=== PATIENT | male | born 1995 | race Two or more races ===

== ENCOUNTER 2024-08-31 13:07 | Emergency (ER) | payer MEDICAID, SELFPAY ==
[2024-08-31 13:42] VITALS: BP 130/85; PULSE 89; RESP 18; TEMP 36.9; O2SAT 98; BMI 39.0
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
[2024-08-31] MEDS: ACETAMINOPHEN 325 MG TABLET 650 MG PO (14:20)
[2024-08-31] MEDS: KETOROLAC INJ 60 MG/2 ML VIAL 30 MG IM (17:05)
[2024-08-31 17:25] VITALS: BP 140/85; PULSE 88; RESP 18; TEMP 36.9; O2SAT 98
== END 2024-08-31 17:26 | disposition home or self-care (01) ==
PROVIDERS: Emergency Provider Emergency Medicine
DX: S30.1XXA Contusion of abdominal wall, initial encounter (principal); S89.92XA Unspecified injury of left lower leg, initial encounter; S89.91XA Unspecified injury of right lower leg, initial encounter; S69.91XA Unspecified injury of right wrist, hand and finger(s), initial encounter; V49.40XA Driver injured in collision with unspecified motor vehicles in traffic accident, initial encounter
CPT/HCPCS: 73110; 73562; 74176; 81001; 96372; 99284; J1885; A9270